=== PATIENT | male | born 1960 | race African-American/Black ===

== ENCOUNTER 2016-05-10 21:55 | Emergency (ER) | payer OTHER ==
[2016-05-10 22:05] VITALS: BP 152/64; PULSE 97; TEMP 98; BMI 22.8
[2016-05-10] MEDS ORDERED: IBUPROFEN 400 MG TABLET (FP) PO ONE ×2 (22:33→22:38)
--- NOTE | 2016-05-10 22:33 | PDOC ---
History of Present Illness - General Chief Complaint: Pain Stated Complaint: PAIN, ACUTE Time Seen by Provider: 05/10/16 22:22 - History of Present Illness Initial Comments: 05/10/16 22:32 CHIEF COMPLAINT: pain to left ribs s/p fall HISTORY OF PRESENT ILLNESS: 55 yo M with no PMH presents to ED with pain to left ribs s/p fall. Patient states he was walking when he slipped on ice and fell. He denies any LOC, loss of sensation, or injury to any other part of the body. No recent travel or sick contacts. PAST MEDICAL HISTORY: Denies past medical history FAMILY HISTORY: Denies SOCIAL HISTORY: Current 25 pack year smoker, now 3-4 cigarettes daily. Denies alcohol, illicit drug use. SURGICAL HISTORY: Denies ALLERGIES: No known drug allergies REVIEW OF SYSTEMS General/Constitutional: Denies fever or chills. Denies weakness, weight change. HEENT: Denies change in vision. Denies ear pain or discharge. Denies sore throat. Cardiovascular: Denies chest pain or shortness of breath. Respiratory: Denies cough, wheezing, or hemoptysis. Gastrointestinal: Denies nausea, vomiting, diarrhea or constipation. Denies rectal bleeding. Genitourinary: Denies dysuria, frequency, or change in urination. Musculoskeletal: Pain to left ribs, worse with movement. Skin and breasts: Denies rash or easy bruising. Neurologic: Denies headache, vertigo, loss of consciousness, or loss of sensation. PHYSICAL EXAM General Appearance: Well-appearing, appropriately dressed. No apparent distress , no intoxication. HEENT: EOMI, PERRLA, normal ENT inspection, normal voice, TMs normal, pharynx normal. No conjunctival pallor. No photophobia, scleral icterus. Respiratory/Chest: Lungs CTAB. Cardiovascular: RRR. S1, S2. Gastrointestinal/Abdominal: Normal bowel sounds. Abdomen soft, non-distended. No tenderness or rebound tenderness. No organomegaly, pulsatile mass, guarding , hernia, hepatomegaly, splenomegaly. Musculoskeletal/Extremities: Tenderness to left lower ribs on palpation, mild erythema to affected area. FROM of all extremities, normal capillary refill. Pelvis Stable. No CVA tenderness. No tenderness to extremities, pedal edema, swelling, erythema or deformity. Integumentary: Appropriate color, dry, warm. No cyanosis, erythema, jaundice or rash Neurologic: progressive assembler and fitter II-XII intact. Fully oriented, alert. Appropriate mood/affect. Motor strength 5/5. No appreciable EOM palsy, facial droop or sensory deficit. Past History - Past Medical History Allergies/Adverse Reactions: Allergies Allergy/AdvReac Type Severity Reaction Status Date / Time No Known Allergies Allergy Verified 05/10/16 22:04 Home Medications: Ambulatory Orders No Home Medications 0 dose .ROUTE UTDICT 05/02/12 Tramadol HCl [Ultram] 50 mg PO TID PRN #12 tablet MDD 3 05/11/16 - Psycho/Social/Smoking Cessation Hx Anxiety: No Suicidal Ideation: No Smoking Status: Yes Smoking History: Current every day smoker Have you smoked in the past 12 months: Yes Number of Cigarettes Smoked Daily: 4 Information on smoking cessation initiated: No Hx Alcohol Use: No Drug/Substance Use Hx: No Substance Use Type: None *Physical Exam - Vital Signs Last Vital Signs Temp Pulse Resp BP Pulse Ox 98.0 F 97 H 18 152/64 99 05/10/16 22:02 05/10/16 22:02 05/10/16 22:02 05/10/16 22:02 05/10/16 22:02 Medical Decision Making - Medical Decision Making 05/11/16 01:06 55 yo M with no PMH presents to ED with pain to left ribs s/p fall. Patient states he was walking when he slipped on ice and fell. He denies any LOC, loss of sensation, or injury to any other part of the body. -Rib x-ray, b/l -800 mg ibuprofen X-ray results: No pneumothorax, pleural effusion, or lung contusion. Cardiomediastinal silhouette unremarkable. Subtle contour irregularities left anterior ribs 7 and 8, question acute or chronic fractures (i.e., age uncertain) . Read by: Melinad Wise M.D. Patient still c/o pain. He states he will take a taxi home, as he did not drive here. -50 mg Tramadol given in ER, rx also sent to pharm. Advised patient to take medication as prescribed and to avoid driving or operating machinery while taking medication. Advised patient to follow up with PCP this week and of signs and symptoms for return to ER; patient verbalized understanding and agrees to plan. *DC/Admit/Observation/Transfer Diagnosis at time of Disposition: Left rib fracture Qualifiers: Encounter type: initial encounter Rib fracture type: multiple ribs Fracture type: closed Qualified Code(s): S22.42XA - Multiple fractures of ribs, left side , initial encounter for closed fracture - Discharge Dispostion Admit: No - Prescriptions Prescriptions: Tramadol HCl [Ultram] 50 mg PO TID PRN #12 tablet MDD 3 PRN Reason: Pain - Referrals Referrals: Su Thornton [Primary Care Provider] - - Patient Instructions Printed Discharge Instructions: DI for Rib Fracture Additional Instructions: As discussed, please follow up with Dr. Thornton this week. As discussed, return immediately to the ED for any concerning symptoms, such as shortness of breath, increasing pain, or signs of pneumonia (eg, cough, fever).
--- NOTE | 2016-05-11 00:10 | PDOC ---
*Physical Exam - Vital Signs Last Vital Signs Temp Pulse Resp BP Pulse Ox 98.0 F 97 H 18 152/64 99 05/10/16 22:02 05/10/16 22:02 05/10/16 22:02 05/10/16 22:02 05/10/16 22:02 ED Treatment Course - Medications Given in the ED: ED Medications Discontinued Medications Generic Name Dose Route Start Last Admin Trade Name Freq PRN Reason Stop Dose Admin Ibuprofen 800 mg 05/10/16 22:33 05/10/16 22:42 Motrin - PO 05/10/16 22:34 800 mg ONCE ONE Administration Medical Decision Making - Medical Decision Making 05/11/16 00:10 agree with care from SEBAS Santos *DC/Admit/Observation/Transfer Diagnosis at time of Disposition: Left rib fracture - Discharge Dispostion Disposition: HOME - Prescriptions Prescriptions: Tramadol HCl [Ultram] 50 mg PO TID PRN #12 tablet MDD 3 PRN Reason: Pain - Referrals Referrals: Su Thornton [Primary Care Provider] - - Patient Instructions Printed Discharge Instructions: DI for Rib Fracture Additional Instructions: As discussed, please follow up with Dr. Thornton this week. As discussed, return immediately to the ED for any concerning symptoms, such as shortness of breath, increasing pain, or signs of pneumonia (eg, cough, fever).
[2016-05-11] MEDS ORDERED: traMADol HCL 50 MG TABLET PO ONE (00:20)
[2016-05-11] MEDS ORDERED: traMADol HCL 50 MG TABLET ONE (00:26)
== END 2016-05-11 00:30 | disposition home or self-care (01) ==
LOC: JER 21:55 → SUPCPDRO 21:55 → JER 05-11 00:30
DX: S22.42XA Multiple fractures of ribs, left side, initial encounter for closed fracture (principal); S22.31XA Fracture of one rib, right side, initial encounter for closed fracture; W00.0XXA Fall on same level due to ice and snow, initial encounter; Y93.01 Activity, walking, marching and hiking; Y92.89 Other specified places as the place of occurrence of the external cause
CPT/HCPCS: 71111-TC; 99281-25